=== PATIENT | male | born 1960 | race Caucasian/White ===

== ENCOUNTER → 2019-08-28 | Outpatient (REF) | payer OTHER | LOC: M SFHCPLAZ 08:42 | PROVIDERS: ATTEND Family Medicine | DX: Z00.00 Encounter for general adult medical examination without abnormal findings (principal); E29.1 Testicular hypofunction; I10 Essential (primary) hypertension; E78.5 Hyperlipidemia, unspecified; R73.03 Prediabetes ==

== ENCOUNTER → 2020-07-15 | Outpatient (REF) | payer OTHER | LOC: M SFHCPLAZ 10:18 | PROVIDERS: ATTEND Family Medicine | DX: E29.1 Testicular hypofunction (principal) ==

== ENCOUNTER 2021-05-29 14:20 | Emergency (ER) | payer OTHER ==
[~2021-05-29] VITALS: Ht 177.8 cm; Wt 125.1 kg
--- OUTSIDE RECORDS SUMMARY | 2021-05-29 14:24 | CCD ---
Author Author [facility] Organization [facility] Address Unknown Phone Unavailable Care Team Providers Care Operations Research Engineer Name Role Phone Ritesh Richardson Unavailable PROBLEMS Type Condition ICD9-CM Code [id number] Code Onset Dates Condition S tatus W/U Status Risk SNOMED Code Notes Problem Essential hypertension I10 Active confirmed 32403102 Problem Hypogonadism in male E29.1 Active confirmed 09708709 Problem Hyperlipidemia, unspecified hyperlipidemia type E7 8.5 Active confirmed [id number] ALLERGIES Allergen (clinical drug ingredient) Drug/Non Drug Allergy do cumented on EMR Reaction Allergy Type Onset Date Status Sulfa (for allergy use only) Anaphylaxis Drug Allergy Active ENCOUNTERS from 1960 to 2021-03-13 Encounter Location Date Provider Diagnosis [address] [phone] [place] [address] Feb, Ritesh Richardson IMMUNIZATIONS No Information SOCIAL HISTORY Tobacco Use: Social History Observation Description Date Details (start date - stop date) Current Smoker Sex Assigned At : Social History Observation Description Sex Assigned At Unknown Audit Question Answer Notes Total Score: 3 Interpretation: Alcohol Education Sexual Hx: Question Answer Notes Have you ever had an STD? No Drug and Alcohol Question Answer Notes Total Score: 0 Interpretation: No problems reported Alcohol Screening: Question Answer Notes Did you have a drink containing alcohol in the past year? Ye s Points 0 Interpretation Negative Tobacco Use: Question Answer Notes Are you a: current smoker Patient counseled on the dangers of tobacco use and urged to quit: 05/20/2019 How many cigarettes a day do you smoke? 5 or less Cigars Are you interested in quitting? Not ready to quit Counseled the patient on smoking effects, education provided 05/20/2019 REASON FOR REFERRAL No Information VITAL SIGNS No information MEDICATIONS Medication SIG (Take, Route, Frequency, Duration) Notes Start Da te End Date Status Lisinopril 40 MG 1 tablet Orally Once a day for 30 days Active Atenolol 50 MG 1 tablet Once a day Orally 90 days for 30 days Active Lisinopril 40 MG 1 by mouth every day 90 days for 90 Active Aspirin 325 MG 1 tablet Orally Once a day for 30 day(s) Active Triamcinolone Acetonide 0.1 % 1 application Externally Twice a day for a max of 14 days for 14 days Jul, Active Testosterone Cypionate 200 MG/ML 1 ml Intramuscular every 2 week s for 28 days Active Atenolol 50 MG 1 tablet Orally Once a day for 30 day(s) Active Furosemide 40 MG TAKE ONE TABLET BY MOUTH ONC E DAILY 30 30 orally Daily for 30 days Active Atorvastatin Calcium 80 MG 1 tablet Orally Once a day for 30 day(s) Active Pantoprazole Sodium 40 MG 1 tablet Orally Once a day for 30 Active PROCEDURES No Information RESULTS No Results REASON FOR VISIT refill MEDICAL (GENERAL) HISTORY Type Description Date Medical History Hypertension goal < 140/90 Medical History High Cholesterol Medical History h/o Testicular Cancer, s/p bilateral orc hiectomy Medical History Low Testosterone Surgical History CABG x 5, sees cardiology 2016 Surgical History Testicular cancer biopsy and removal Hospitalization History Surgery Goals Section No Information Health Concerns No Information MEDICAL EQUIPMENT No Information MENTAL STATUS No Information FUNCTIONAL STATUS No Information ASSESSMENTS No Information PLAN OF TREATMENT Medication Medication Name Sig Start Date Stop Date Lisinopril 40 MG 1 tablet Orally Once a day for 30 days Furosemide 40 MG TAKE ONE TABLET BY MOUTH ONC E DAILY 30 30 orally Daily for 30 days Testosterone Cypionate 200 MG/ML 1 ml Intramuscular every 2 week s for 28 days Pantoprazole Sodium 40 MG 1 tablet Orally Once a day for 30 Atenolol 50 MG 1 tablet Once a day Orally 90 days for 30 days Insurance Providers Payer Name Payer Address Payer Phone Insured Name Patient Relati onship to Insured Coverage Start Date Coverage End Date [facility] [address] [facility] [phone] TR[place] DUFFY self
--- OUTSIDE RECORDS SUMMARY | 2021-05-29 14:24 | CCD ---
Author Author [facility] Organization [facility] Address Unknown Phone Unavailable Care Team Providers Care Customer Order Clerk Name Role Phone BETO, L HO PA Unavailable Unavailable BETO, L HO PA Unavailable Unavailable BETO, L HO PA Unavailable Unavailable BETO, L HO PA Unavailable Unavailable BETO, L HO PA Unavailable Unavailable BETO, L HO PA Unavailable Unavailable BETO, L HO PA Unavailable Unavailable BETO, L HO PA Unavailable Unavailable BETO, L HO PA Unavailable Unavailable BETO, L HO PA Unavailable Unavailable BETO, L HO PA Unavailable Unavailable BETO, L HO PA Unavailable Unavailable BETO, L HO PA Unavailable Unavailable BETO, L HO PA Unavailable Unavailable BETO, L HO PA Unavailable Unavailable BETO, L HO PA Unavailable Unavailable DRAZEK, I JUDY PA Unavailable Unavailable DRAZEK, I JUDY PA Unavailable Unavailable DRAZEK, I JUDY PA Unavailable Unavailable DRAZEK, I JUDY PA Unavailable Unavailable DRAZEK, I JUDY PA Unavailable Unavailable DRAZEK, I JUDY PA Unavailable Unavailable DRAZEK, I JUDY PA Unavailable Unavailable DRAZEK, I JUDY PA Unavailable Unavailable DRAZEK, I JUDY PA Unavailable Unavailable DRAZEK, I JUDY PA Unavailable Unavailable DRAZEK, I JUDY PA Unavailable Unavailable DRAZEK, I JUDY PA Unavailable Unavailable DRAZEK, I JUDY PA Unavailable Unavailable DRAZEK, I JUDY PA Unavailable Unavailable DRAZEK, I JUDY PA Unavailable Unavailable DRAZEK, I JUDY PA Unavailable Unavailable DRAZEK, I JUDY PA Unavailable Unavailable DRAZEK, I JUDY PA Unavailable Unavailable DRAZEK, I JUDY PA Unavailable Unavailable DRAZEK, I JUDY PA Unavailable Unavailable DRAZEK, I JUDY PA Unavailable Unavailable DRAZEK, I JUDY PA Unavailable Unavailable DRAZEK, I JUDY PA Unavailable Unavailable DRAZEK, I JUDY PA Unavailable Unavailable DRAZEK, I JUDY PA Unavailable Unavailable DRAZEK, I JUDY PA Unavailable Unavailable DRAZEK, I JUDY PA Unavailable Unavailable DRAZEK, I JUDY PA Unavailable Unavailable DRAZEK, I JUDY PA Unavailable Unavailable DRAZEK, I JUDY PA Unavailable Unavailable Re-disclosure Warning The records that you are about to access may contain information from federally-assisted alcohol or drug abuse programs. If such information is present, then the following federally mandated warning applies: This information has been disclosed to you from records protected by federal confidentiality rules (42 CFR part 2). The federal rules prohibit you from making any further disclosure of this information unless further disclosure is expressly permitted by the written consent of the person to whom it pertains or as otherwise permitted by 42 CFR part 2. A general authorization for the release of medical or other information is NOT sufficient for this purpose. The Federal rules restrict any use of the information to criminally investigate or prosecute any alcohol or drug abuse patient.The records that you are about to access may contain highly sensitive health information, the redisclosure of which is protected by Article 27-F of the [place] Public Health law. If you continue you may have access to information: Regarding HIV / AIDS; Provided by facilities licensed or operated by the [facility] Office of Mental Health; or Provided by the [facility] Office for People With Developmental Disabilities. If such information is present, then the following [facility] mandated warning applies: This information has been disclosed to you from confidential records which are protected by state law. State law prohibits you from making any further disclosure of this information without the specific written consent of the person to whom it pertains, or as otherwise permitted by law. Any unauthorized further disclosure in violation of state law may result in a fine or mcc sentence or both. A general authorization for the release of medical or other information is NOT sufficient authorization for further disc losure. Family History Family Member Name Family Member Gender Family Member Status Date o f Status Description Data Source(s) Unknown Unknown Problem [facility] ([facility]) Encounters Encounter Providers Location Date Indications Data Source(s ) Unknown [address] [facility] [address] 05/08/2021 12:00:00 AM EDT eCW1 ([facility]) Unknown [address] [facility] [address] 03/15/2021 12:00:00 AM EDT eCW1 ([facility]) Unknown [address] [facility] [address] 03/07/2021 12:00:00 AM EDT eCW1 ([facility]) Unknown [address] [facility] [address] 01/25/2021 12:00:00 AM EDT eCW1 ([facility]) Unknown [address] [facility] [address] 12/16/2020 12:00:00 AM EDT eCW1 ([facility]) Unknown [address] [facility] [address] 12/15/2020 12:00:00 AM EDT eCW1 ([facility]) Unknown [address] [facility] [address] 10/27/2020 12:00:00 AM EDT eCW1 ([facility]) Unknown [address] [facility] [address] 10/19/2020 12:00:00 AM EDT eCW1 ([facility]) Unknown [address] [facility] [address] 10/19/2020 12:00:00 AM EDT eCW1 ([facility]) Office Visit Attender: JUDY COHEN Physical Therapy 2020 08:30:00 AM EDT MED[facility] ([facility]) Unknown [address] [facility] [address] 09/09/2020 12:00:00 AM EST eCW1 ([facility] OFFICE OUTPATIENT NEW 30 MINUTES Attender: JUDY COHEN Physic al Therapy 08/31/2020 07:45:00 AM EST [facility] ([facility]) Unknown [address] [facility] [address] 07/20/2020 12:00:00 AM EST eCW1 ([facility]) Outpatient [address] [facility] [place] [address] 07/15/2020 12:00:00 AM EST eCW1 ([facility]) Outpatient Attender: HO COHEN Main Office 07/01/2020 1 2:30:00 PM EST MED[facility] ([facility]) Unknown [address] [facility] [place] [address] 06/08/2020 12:00:00 AM EST eCW1 ([facility]) Unknown [address] [facility] [address] 05/25/2020 12:00:00 AM EDT eCW1 ([facility]) Medications Medication Brand Name Start Date Product Form Dose Route Admi nistrative Instructions Pharmacy Instructions Status Indications Reaction Description Data Source(s) Testosterone Cypionate 200 MG/ML Testosterone Cypionate 200 MG/ML 04/25/2021 12:00:00 AM EDT 1.0 {ml} active Testos terone Cypionate 200 MG/ML eCW1 ([facility]) Nitroglycerin 0.4 MG Sublingual Tablet Nitroglycerin 0 12:00:00 AM EST SUBLINGUAL active MEDEN T ([facility]) Insurance Providers Payer name Policy type / Coverage type Policy ID Covered democrat ID Covered democrat's relationship to horner Policy Horner Plan Information UHC MEDICAID [id number] Lizeth [id number] [facility] MEDICAID [id number] Lizeth [id number] [facility] Commercial [id number] Self [id number] [facility] Medigap Part B [id number] Self [id number] Medicaid Medigap Part B [id number] Self [id number] [facility] Commercial [id number] Self [id number] [facility] [id number] SP [id number] MEDICAID M [id number] S [id number] [facility] Commercial [id number] Self [id number] [facility] Commercial [id number] Self [facility] O [id number] S [id number] Medicaid [facility] Part B [id number] Self [id number] Problems, Conditions, and Diagnoses No Information Surgeries/Procedures Procedure Description Date Indications Data Source(s) RADEX SHOULDER COMPLETE MINIMUM 2 VIEWS 08/31/2020 12: 00:00 AM EST [facility] ([facility] RADEX SHOULDER COMPLETE MINIMUM 2 VIEWS 08/31/2020 12: 00:00 AM EST MED[facility] ([facility] ) RADEX SHOULDER COMPLETE MINIMUM 2 VIEWS 08/31/2020 12: 00:00 AM EST MED[facility] ([facility] ) ECG ROUTINE ECG W/LEAST 12 LDS W/I&R 07/01/2020 12:00: 00 AM EST MED[facility] ([facility]) Results ID Date Data Source CBC - Complete Blood Count 08/08/2020 12:00:00 AM EST eCW1 ( [facility]) Name Value Range Interpretation Code Description Data Payton rce(s) Supporting Document(s) WBC eCW1 ([facility]) Complete Blood Count (CBC) eCW 1 ([facility]) RBC eCW1 ([facility]) HEMATOCRIT eCW1 ([facility]) HEMOGLOBIN eCW1 ([facility]) MCV eCW1 ([facility]) RDW eCW1 ([facility]) MCHC eCW1 ([facility]) MCH eCW1 ([facility]) PLATELET COUNT eCW1 ([facility]) Procedure Social History Code Duration Value Status Description Data Source(s ) Smoking 04/25/2021 12:00:00 AM EDT Current Smoker completed Curre nt Smoker eCW1 ([facility]) Smoking 09/26/2020 12:00:00 AM EST Current Smoker completed Curre nt Smoker eCW1 ([facility]) Smoking 09/26/2020 12:00:00 AM EST Current Smoker completed Curre nt Smoker eCW1 ([facility]) Smoking 09/26/2020 12:00:00 AM EST Current Smoker completed Curre nt Smoker eCW1 ([facility]) Smoking 09/26/2020 12:00:00 AM EST Current Smoker completed Curre nt Smoker eCW1 ([facility]) Smoking 09/26/2020 12:00:00 AM EST Current Smoker completed Curre nt Smoker eCW1 ([facility]) Smoking 09/26/2020 12:00:00 AM EST Current Smoker completed Curre nt Smoker eCW1 ([facility]) Smoking 09/26/2020 12:00:00 AM EST Current Smoker completed Curre nt Smoker eCW1 ([facility]) Smoking 09/26/2020 12:00:00 AM EST Current Smoker completed Curre nt Smoker eCW1 ([facility]) Smoking 09/26/2020 12:00:00 AM EST Current Smoker completed Curre nt Smoker eCW1 ([facility]) Smoking 07/15/2020 12:00:00 AM EST Current Smoker completed Curre nt Smoker eCW1 ([facility]) Smoking 07/15/2020 12:00:00 AM EST Current Smoker completed Curre nt Smoker eCW1 ([facility]) Smoking 07/01/2020 12:00:00 AM EST Patient is a former smoker completed Patient is a former smoker MEDENT ([facility]) Vital Signs ID Date Data Source UNK Name Value Range Interpretation Code Description Data Source(s) Body mass index (BMI) [Ratio] 40.9 kg/m2 40.9 k g/m2 MEDENT ([facility]) Body temperature 97.1 [degF] 97.1 [degF] MEDENT ([facility]) Body height 69.75 [in_i] 69.75 [in_i] MEDENT ([facility]) 5'9.75" Body weight 283.38 [lb_av] 283.38 [lb_av] MEDEN T ([facility] ) Body weight 283 [lb_av] 283 [lb_av] eCW1 ([facility]) Body height 71 [in_i] 71 [in_i] eCW1 ([facility]) Body mass index (BMI) [Ratio] 39.47 kg/m2 39.47 kg/m2 eCW1 ([facility]) Heart rate 17 /min 17 /min eCW1 ([facility]) Respiratory rate 97.7 /min 97.7 /min eCW1 ([facility]) Body temperature 91 [degF] 91 [degF] eCW1 ([facility]) Systolic blood pressure 124 mm[Hg] 124 mm[Hg] e CW1 ([facility]) Diastolic blood pressure 78 mm[Hg] 78 mm[Hg] eCW1 ([facility]) Body weight 271.00 [lb_av] 271.00 [lb_av] MEDEN T ([facility]) Body height 71 [in_i] 71 [in_i] [facility] ([facility] 5'11" Body mass index (BMI) [Ratio] 37.8 kg/m2 37.8 k g/m2 MEDENT ([facility]) Patient Treatment Plan of Care Planned Activity Planned Date Details Description Data Source (s) Testosterone Cypionate 200 MG/ML 04/25/2021 12:00:00 AM EDT eCW1 ([facility])
--- OUTSIDE RECORDS SUMMARY | 2021-05-29 14:24 | CCD ---
Author Author [email or web address] Organization [email or web address] Address Unknown Phone Unavailable Care Team Providers Care Manager Audit Name Role Phone Ritesh Richardson Unavailable PROBLEMS Type Condition ICD9-CM Code [id number] Code Onset Dates Condition S tatus W/U Status Risk SNOMED Code Notes Problem Essential hypertension I10 Active confirmed 86390222 Problem Hypogonadism in male E29.1 Active confirmed 06474266 Problem Hyperlipidemia, unspecified hyperlipidemia type E7 8.5 Active confirmed 46334606 ALLERGIES Allergen (clinical drug ingredient) Drug/Non Drug Allergy do cumented on EMR Reaction Allergy Type Onset Date Status Sulfa (for allergy use only) Anaphylaxis Drug Allergy Active ENCOUNTERS from 1960 to 2021-04-05 Encounter Location Date Provider Diagnosis [address] [phone] [place] [address] Feb, Ritesh Richardson IMMUNIZATIONS No Information SOCIAL [...] Notes Start Da te End Date Status Atorvastatin Calcium 80 MG 1 tablet Orally Once a day for 30 day(s) Active Atenolol 50 MG 1 tablet Once a day Orally 90 days for 30 days Active Lisinopril 40 MG 1 by mouth every day 90 days for 90 Active Lisinopril 40 MG 1 tablet Orally Once a day for 30 days Active Aspirin 325 MG 1 tablet Orally Once a day for 30 day(s) Active Testosterone Cypionate 200 MG/ML 1 ml Intramuscular every 2 week s for 28 days Active Atenolol 50 MG 1 tablet Orally Once a day for 30 day(s) Active Pantoprazole Sodium 40 MG 1 tablet Orally Once a day for 30 days Active Triamcinolone Acetonide 0.1 % 1 application Externally Twice a day for a max of 14 days for 14 days Jul, Active Furosemide 40 MG TAKE ONE TABLET BY MOUTH ONC E DAILY 30 30 orally Daily for 30 days Active PROCEDURES No Information RESULTS No Results REASON FOR VISIT testosterone MEDICAL (GENERAL) HISTORY Type Description Date Medical [...] Medication Name Sig Start Date Stop Date Atenolol 50 MG 1 tablet Orally Once a day for 30 day(s) Pantoprazole Sodium 40 MG 1 tablet Orally Once a day for 30 days Furosemide 40 MG TAKE ONE TABLET BY MOUTH ONC E DAILY 30 30 orally Daily for 30 days Lisinopril 40 MG 1 tablet Orally Once a day for 30 days Atenolol 50 MG 1 tablet Once a day Orally 90 days for 30 days Testosterone Cypionate 200 MG/ML 1 ml Intramuscular every 2 week s for 28 days Next Appt Details Provider Name:Tom Reni, 2021-04-25 03: 45:00 PM, [address] , , [place], [address], Insurance Providers Payer Name Payer Address Payer Phone Insured Name Patient Relati onship to Insured Coverage Start Date Coverage End Date [facility] [id number] [facility] [phone] TRISH DUFF[place] self
--- OUTSIDE RECORDS SUMMARY | 2021-05-29 14:24 | CCD ---
Author Author [facility] Organization [facility] Address Unknown Phone Unavailable Care Team Providers Care Sociology Instructor Name Role Phone Tom Noguera Unavailable PROBLEMS Type Condition ICD9-CM Code [id number] Code Onset Dates Condition S tatus W/U Status Risk SNOMED Code Notes Problem Essential hypertension I10 Active confirmed 59427136 Problem Hypogonadism in male E29.1 Active confirmed 43315792 Problem Hyperlipidemia, unspecified hyperlipidemia type E7 8.5 Active confirmed 25944892 ALLERGIES Allergen (clinical drug ingredient) Drug/Non Drug Allergy do cumented on EMR Reaction Allergy Type Onset Date Status Sulfa (for allergy use only) Anaphylaxis Drug Allergy Active ENCOUNTERS from 1960 to 2021-05-08 Encounter Location Date Provider Diagnosis [address] [phone] [place] [address] Apr, Tom Noguera IMMUNIZATIONS No Information SOCIAL HISTORY Tobacco Use: [...] Notes Start Da te End Date Status Pantoprazole Sodium 40 MG TAKE ONE TABLET BY MOUTH ONCE DAILY for 30 Active Atenolol 50 MG 1 tablet Orally Once a day for 30 day(s) Active Aspirin 325 MG 1 tablet Orally Once a day for 30 day(s) Active Triamcinolone Acetonide 0.1 % 1 application Externally Twice a day for a max of 14 days for 14 days Jul, Active Furosemide 40 MG TAKE ONE TABLET BY MOUTH ONCE DAILY for 30 Active Atorvastatin Calcium 80 MG 1 tablet Orally Once a day for 30 day(s) Active Lisinopril 40 MG TAKE ONE TABLET BY MOUTH ONCE DAILY for 30 Active Testosterone Cypionate 200 MG/ML 1 ml Intramuscular every 2 week s for 28 days Mar, Active Atenolol 50 MG 1 tablet Once a day Orally 90 days for 30 days Not-Taking PROCEDURES No Information RESULTS No Results REASON FOR VISIT meds not sent - out of meds MEDICAL (GENERAL) HISTORY Type Description Date Medical [...] Medication Name Sig Start Date Stop Date Pantoprazole Sodium 40 MG TAKE ONE TABLET BY MOUTH ONCE DAILY fo r 30 Lisinopril 40 MG TAKE ONE TABLET BY MOUTH ONCE DAILY for 30 Furosemide 40 MG TAKE ONE TABLET BY MOUTH ONCE DAILY for 30 Testosterone Cypionate 200 MG/ML 1 ml Intramuscular every 2 weeks for 28 days Mar, Insurance Providers Payer Name Payer Address Payer Phone Insured Name Patient Relati onship to Insured Coverage Start Date Coverage End Date [facility] [address] [facility] [phone] TRISH DUFFY self
[2021-05-29] MEDS ORDERED: BAYE325T13 PO (14:30)
[2021-05-29] MEDS ORDERED: ATEN50TA2 (14:30)
[2021-05-29] MEDS ORDERED: FURO40TA2 (14:30)
[2021-05-29] MEDS ORDERED: LISI40TA4 (14:30)
[2021-05-29] MEDS ORDERED: ATOR80TA59 (14:30)
[2021-05-29] MEDS ORDERED: PANT40TA29 (14:30)
[2021-05-29] MEDS ORDERED: TEST200I14 (14:30)
--- NOTE | 2021-05-29 21:41 | REPVR ---
PROCEDURE INFORMATION: Exam: XR Chest Exam date and time: 05/29/2021 8:32 PM Age: 60 years old Clinical indication: Screening exam; Other screening; Additional info: Covid 19 TECHNIQUE: Imaging protocol: XR of the chest. Views: 1 view. COMPARISON: No relevant prior studies available. FINDINGS: Lungs: No focal infiltrates. Pleural spaces: Unremarkable. No pleural effusion. No pneumothorax. Heart/Mediastinum: Unremarkable. No cardiomegaly. Bones/joints: Status post sternotomy. Other findings: Lordotic projection. IMPRESSION: 1. Status post sternotomy. 2. Otherwise negative lordotic chest. No focal infiltrates. Electronically signed by: Ananda Ferrera On 05/29/2021 21:40:57 PM
[2021-05-29 22:43] VITALS: BP 170/88
== END 2021-05-29 22:46 | disposition home or self-care (01) ==
LOC: M ED 14:20
DX: R43.8 Other disturbances of smell and taste (principal); U07.1 COVID-19; I25.10 Atherosclerotic heart disease of native coronary artery without angina pectoris; Z88.2 Allergy status to sulfonamides; F17.210 Nicotine dependence, cigarettes, uncomplicated
CPT/HCPCS: 71045; 99283; U0002

== ENCOUNTER 2021-05-31 11:42 | Outpatient (CLI) | payer OTHER ==
--- NOTE | 2021-05-29 22:50 | IPNPDOC ---
Text Note Date of Service The patient was seen on 05/29/21. NOTE Outpatient transfusion for COVID+ patient encounter Patient is COVID19+ will be receiving Monocolonal antibodies infusion therapy p er hospital infusion policy. Patient has been feeling loss of sense of taste and smell for 1 day which prompted him to do home Covid test which was positive and confirmed in the ER. He presented to the ER requesting monoclonal antibodies which his sister recently received with good results. Patient does not meet criteria to be admitted to the hospital. Patient is breathing at 98% on room air and does not dipped below 92% on ambulation. Patient will receive the infusion and then be discharged to home with OP followup. On exam patient was resting comfortably lungs were clear to auscultation bilaterally with no crackles or wheezing. Regular heart rate. Patient was calm awake and answering all questions appropriately. Is able to speak in full sentences without appearing short of breath. Consent was obtained with patient and signed in the chart. Patient advised to return to hospital should his symptoms worsen. JOANNE LONDON MD May 29, 2021 22:50
[~2021-05-31] VITALS: Ht 177.8 cm; Wt 120.0 kg
[~2021-05-31 11:42] MED LIST: ACETAMINOPHEN TAB 650MG DOSE (2X325MG) PO ONE; ACETAMINOPHEN TAB 650MG DOSE (2X325MG) PO PRN; ALBUTEROL 90 MCG/ACT 8GM HFA INHALER INH PRN; ALBUTEROL SULFATE 2.5 MG/0.5 ML INH NEB SOLN INH PRN; ATEN50TA2; ATOR80TA59; BAMLANIVIMAB 700 MG, ETESEVIMAB 1,400 MG in NS 250 ML IV ONE; BAYE325T13 PO; CASIRIVIMAB/IMDEVIMAB 1,200 MG in NS 250 ML IV ONE; EPINEPHrine INJ 1 MG/ML 1ML AMP IM PRN; FURO40TA2; LISI40TA4; NS 1,000 ML IV SCH; PANT40TA29; TEST200I14; diphenhydrAMINE 25MG CAP PO ONE; diphenhydrAMINE 50MG/ML VIAL (J1200) IV PRN; methylPREDNISolone 125MG 2ML VIAL IV PRN
[2021-05-31 12:55] VITALS: BP 164/77
[2021-05-31 13:25] VITALS: BP 166/85
[2021-05-31 13:55] VITALS: BP 174/86
[2021-05-31 14:55] VITALS: BP 210/102
== END 2021-05-31 15:10 | disposition home or self-care (01) ==
LOC: M OPCLI4 11:42
PROVIDERS: ATTEND Family Medicine
DX: U07.1 COVID-19 (principal); Z88.2 Allergy status to sulfonamides

== ENCOUNTER 2021-05-31 15:19 | Emergency (ER) | payer OTHER ==
[~2021-05-31] VITALS: Ht 177.8 cm; Wt 122.7 kg
[~2021-05-31 15:19] MED LIST changes: -ACETAMINOPHEN TAB 650MG DOSE (2X325MG) PO ONE; -ACETAMINOPHEN TAB 650MG DOSE (2X325MG) PO PRN; -ALBUTEROL 90 MCG/ACT 8GM HFA INHALER INH PRN; -ALBUTEROL SULFATE 2.5 MG/0.5 ML INH NEB SOLN INH PRN; -BAMLANIVIMAB 700 MG, ETESEVIMAB 1,400 MG in NS 250 ML IV ONE; -CASIRIVIMAB/IMDEVIMAB 1,200 MG in NS 250 ML IV ONE; -EPINEPHrine INJ 1 MG/ML 1ML AMP IM PRN; -NS 1,000 ML IV SCH; -diphenhydrAMINE 25MG CAP PO ONE; -diphenhydrAMINE 50MG/ML VIAL (J1200) IV PRN; -methylPREDNISolone 125MG 2ML VIAL IV PRN
[2021-05-31 16:20] VITALS: BP 210/94
[2021-05-31] MEDS ORDERED: lisinopriL 40 MG TAB PO ONE (16:20)
[2021-05-31] MEDS ORDERED: ACETAMINOPHEN 325 MG TAB PO ONE (16:20)
[2021-05-31] MEDS ORDERED: atenoloL 50 MG TAB PO ONE (16:20)
[2021-05-31] MEDS ORDERED: FUROSEMIDE 40 MG TAB PO ONE (16:20)
[2021-05-31 17:19] VITALS: BP 184/97
--- NOTE | 2021-06-01 09:45 | ECGEPIP ---
[facility] - ED Test Date: 2021-05-31 Pat Name: TRISH DUFFY Department: Room: - Gender: Male Psych Np: LARISSA : 1960 Requested By: Jeb Cain Order Number: [id number] Reading MD: Liliane Gudino Measurements Intervals [facility] Rate: 101 P: 69 UT: 156 QRS: 40 QRSD: 104 T: 61 QT: 340 QTc: 440 Interpretive Statements Sinus tachycardia Inferior infarct , age undetermined NSTTW abnormalities baseline artifact may affect interpretation No prior Electronically Signed on 06-01-2021 9:45:27 EDT by Liliane Gudino
== END 2021-05-31 17:55 | disposition home or self-care (01) ==
LOC: M ED 15:19
DX: U07.1 COVID-19 (principal); I10 Essential (primary) hypertension; R00.0 Tachycardia, unspecified; E78.5 Hyperlipidemia, unspecified; K21.9 Gastro-esophageal reflux disease without esophagitis; Z79.82 Long term (current) use of aspirin; Z79.890 Hormone replacement therapy; Z79.899 Other long term (current) drug therapy; Z88.2 Allergy status to sulfonamides

== ENCOUNTER → 2021-09-07 | Outpatient (CLI) | payer OTHER ==
[2021-09-07 14:08] LABS: BASO # 0.1 10^3/uL (0.0-0.2); EOS # 0.3 10^3/uL (0.0-0.5); EOS % 2.6 % (0.0-3.0); HEMATOCRIT 50.2 % (42.0-52.0); HEMOGLOBIN 16.7 g/dl (13.5-17.5); LYMPH # 3.5 10^3/uL (1.5-5.0); LYMPH % 32.9 % (24.0-44.0); MEAN CORPUSCULAR HEMOGLOBIN 30.9 pg (27.0-33.0); MEAN CORPUSCULAR HGB CONC 33.3 g/dl (32.0-36.5); MEAN CORPUSCULAR VOLUME 92.8 fl (80.0-96.0); MONO % 9.6 % (2.0-8.0); NEUTROPHILS # 5.7 10^3/uL (1.5-8.5); NEUTROPHILS % 53.5 % (36.0-66.0); PLATELET COUNT, AUTOMATED 260 10^3/uL (150-450); RED BLOOD COUNT 5.41 10^6/uL (4.30-6.10); WHITE BLOOD COUNT 10.7 10^3/uL (4.0-10.0)
[2021-09-07 14:36] LABS: ALBUMIN 3.7 GM/DL (3.2-5.2); ALT/SGPT 46 U/L (12-78); BILIRUBIN,TOTAL 0.4 MG/DL (0.2-1.0); BLOOD UREA NITROGEN 15 MG/DL (7-18); CALCIUM LEVEL 9.7 MG/DL (8.8-10.2); CARBON DIOXIDE LEVEL 26 MEQ/L (21-32); CHLORIDE LEVEL 103 MEQ/L (98-107); CREATININE FOR GFR 1.24 MG/DL (0.70-1.30); GLOMERULAR FILTRATION RATE > 60.0 (>49); GLUCOSE, FASTING 87 MG/DL (70-100); NT-PRO BNP 168 PG/ML (<125); POTASSIUM SERUM 3.9 MEQ/L (3.5-5.1); SODIUM LEVEL 136 MEQ/L (136-145); TOTAL PROTEIN 7.8 GM/DL (6.4-8.2)
[2021-09-07 22:46] LABS: MAGNESIUM LEVEL 1.7 MG/DL (1.7-2.2)
== END ==
LOC: M CARPUL 13:10
PROVIDERS: ATTEND Physician Assistant
DX: R06.02 Shortness of breath (principal)

== ENCOUNTER → 2021-11-13 | Outpatient (CLI) | payer OTHER | LOC: M PLALAB 13:51 | PROVIDERS: ATTEND Student in an Organized Health Care Education/Training Program | DX: M54.16 Radiculopathy, lumbar region (principal) ==

== ENCOUNTER → 2021-11-22 | Outpatient (CLI) | payer OTHER ==
[2021-11-22 11:21] LABS: ALBUMIN 3.9 GM/DL (3.2-5.2); ALT/SGPT 42 U/L (12-78); BILIRUBIN,TOTAL 0.8 MG/DL (0.2-1.0); BLOOD UREA NITROGEN 16 MG/DL (7-18); CALCIUM LEVEL 9.6 MG/DL (8.8-10.2); CARBON DIOXIDE LEVEL 26 MEQ/L (21-32); CHLORIDE LEVEL 106 MEQ/L (98-107); CREATININE FOR GFR 1.14 MG/DL (0.70-1.30); GLOMERULAR FILTRATION RATE > 60.0 (>49); GLUCOSE, FASTING 130 MG/DL (70-100); POTASSIUM SERUM 4.2 MEQ/L (3.5-5.1); SODIUM LEVEL 138 MEQ/L (136-145); TOTAL PROTEIN 7.1 GM/DL (6.4-8.2)
[2021-11-23 10:10] LABS: THYROID STIMULATING HORMONE 0.804 uIU/ML (0.358-3.740)
== END ==
LOC: M PLALAB 08:13
PROVIDERS: ATTEND Student in an Organized Health Care Education/Training Program
DX: M47.896 Other spondylosis, lumbar region (principal)

== ENCOUNTER → 2021-11-23 | Outpatient (REF) | payer OTHER | LOC: M SFHCPLAZ 08:54 | PROVIDERS: ATTEND Family Medicine | DX: M47.896 Other spondylosis, lumbar region (principal) ==

== ENCOUNTER → 2022-08-01 | Outpatient (CLI) | payer OTHER | LOC: M RAD 12:44 | PROVIDERS: ATTEND Physician Assistant | DX: R91.8 Other nonspecific abnormal finding of lung field (principal) ==

== ENCOUNTER → 2022-10-29 | Outpatient (CLI) | payer OTHER | LOC: M RAD 06:50 | PROVIDERS: ATTEND Physician Assistant | DX: R91.8 Other nonspecific abnormal finding of lung field (principal) ==

== ENCOUNTER → 2023-05-07 | Outpatient (CLI) | payer OTHER ==
[2023-05-07 08:04] LABS: BASO # 0.1 10^3/uL (0.0-0.2); EOS # 0.3 10^3/uL (0.0-0.5); EOS % 2.8 % (0.0-3.0); HEMATOCRIT 52.3 % (42.0-52.0); HEMOGLOBIN 16.9 g/dl (13.5-17.5); LYMPH # 2.8 10^3/uL (1.5-5.0); MEAN CORPUSCULAR HEMOGLOBIN 28.8 pg (27.0-33.0); MEAN CORPUSCULAR HGB CONC 32.3 g/dl (32.0-36.5); MEAN CORPUSCULAR VOLUME 89.1 fl (80.0-96.0); MONO # 0.8 10^3/uL (0.0-0.8); MONO % 7.3 % (2.0-8.0); NEUTROPHILS # 6.4 10^3/uL (1.5-8.5); NEUTROPHILS % 61.5 % (36.0-66.0); PLATELET COUNT, AUTOMATED 308 10^3/uL (150-450); RED BLOOD COUNT 5.87 10^6/uL (4.30-6.10); WHITE BLOOD COUNT 10.4 10^3/uL (4.0-10.0)
[2023-05-07 08:24] LABS: ALBUMIN 3.5 G/DL (3.2-5.2); ALKALINE PHOSPHATASE 82 U/L (46-116); ALT/SGPT 39 U/L (7.0-40); AST/SGOT 27 U/L (<34); BILIRUBIN,TOTAL 0.6 MG/DL (0.3-1.2); BLOOD UREA NITROGEN 17 MG/DL (9-23); CALCIUM LEVEL 9.3 MG/DL (8.3-10.6); CARBON DIOXIDE LEVEL 31 MMOL/L (20-31); CHLORIDE LEVEL 108 MMOL/L (98-107); CHOLESTEROL LEVEL 116 MG/DL (<200); CHOLESTEROL RISK RATIO 3.64 (<5); GLOMERULAR FILTRATION RATE > 60.0 (>49); GLUCOSE, FASTING 123 MG/DL (74-106); HDL CHOLESTEROL 31.8 MG/DL (>40); NON-HDL-C 84.2 MG/DL; POTASSIUM SERUM 4.4 MMOL/L (3.5-5.1); SODIUM LEVEL 143 MMOL/L (136-145); TOTAL PROTEIN 6.5 G/DL (5.7-8.2); TRIGLYCERIDES LEVEL 106 MG/DL (<150)
[2023-05-07 08:26] LABS: THYROID STIMULATING HORMONE 0.963 uIU/ML (0.55-4.78)
[2023-05-07 08:27] LABS: FREE T4 0.96 NG/DL (0.89-1.76)
[2023-05-07 08:31] LABS: HEMOGLOBIN A1c 6.1 % (4.0-6.0)
[2023-05-09 00:11] LABS: TESTOSTERONE FREE (DIRECT) 4.7 pg/mL (6.6-18.1)
== END ==
LOC: M LAB 07:27
PROVIDERS: ATTEND Student in an Organized Health Care Education/Training Program
DX: E78.5 Hyperlipidemia, unspecified (principal); Z79.890 Hormone replacement therapy; E29.1 Testicular hypofunction; Z13.1 Encounter for screening for diabetes mellitus; I10 Essential (primary) hypertension

== ENCOUNTER → 2023-09-10 | Outpatient (CLI) | payer OTHER | LOC: M RAD 17:42 | PROVIDERS: ATTEND Physician Assistant | DX: R91.8 Other nonspecific abnormal finding of lung field (principal) ==

== ENCOUNTER → 2023-09-24 | Outpatient (CLI) | payer OTHER ==
[2023-09-24 10:52] LABS: HEMATOCRIT 53.4 % (42.0-52.0); HEMOGLOBIN 17.7 g/dl (13.5-17.5); MEAN CORPUSCULAR HEMOGLOBIN 29.5 pg (27.0-33.0); MEAN CORPUSCULAR HGB CONC 33.1 g/dl (32.0-36.5); PLATELET COUNT, AUTOMATED 319 10^3/uL (150-450); WHITE BLOOD COUNT 12.1 10^3/uL (4.0-10.0)
[2023-09-24 11:14] LABS: ALBUMIN 3.9 G/DL (3.2-5.2); ALKALINE PHOSPHATASE 92 U/L (46-116); ALT/SGPT 46 U/L (7.0-40); AST/SGOT 28 U/L (<34); BILIRUBIN,TOTAL 0.5 MG/DL (0.3-1.2); BLOOD UREA NITROGEN 17 MG/DL (9-23); CALCIUM LEVEL 9.1 MG/DL (8.3-10.6); CARBON DIOXIDE LEVEL 29 MMOL/L (20-31); CHLORIDE LEVEL 107 MMOL/L (98-107); CHOLESTEROL LEVEL 131 MG/DL (<200); CHOLESTEROL RISK RATIO 4.23 (<5); CREATININE FOR GFR 1.07 MG/DL (0.70-1.30); GLOMERULAR FILTRATION RATE > 60.0 (>49); GLUCOSE, FASTING 96 MG/DL (74-106); HDL CHOLESTEROL 30.9 MG/DL (>40); LDL CHOLESTEROL 65.5 MG/DL (<100); MAGNESIUM LEVEL 1.4 MG/DL (1.8-2.4); NON-HDL-C 100.1 MG/DL; POTASSIUM SERUM 4.1 MMOL/L (3.5-5.1); SODIUM LEVEL 140 MMOL/L (136-145); TOTAL PROTEIN 6.9 G/DL (5.7-8.2); TRIGLYCERIDES LEVEL 173 MG/DL (<150)
== END ==
LOC: M EKG 09:52
PROVIDERS: ATTEND Registered Nurse
DX: I25.10 Atherosclerotic heart disease of native coronary artery without angina pectoris (principal)

== ENCOUNTER → 2024-01-20 | Outpatient (CLI) | payer OTHER ==
[2024-01-20 08:20] LABS: HEMATOCRIT 49.6 % (42.0-52.0); HEMOGLOBIN 16.3 g/dl (13.5-17.5); MEAN CORPUSCULAR HEMOGLOBIN 29.7 pg (27.0-33.0); MEAN CORPUSCULAR HGB CONC 32.9 g/dl (32.0-36.5); MEAN CORPUSCULAR VOLUME 90.3 fl (80.0-96.0); PLATELET COUNT, AUTOMATED 313 10^3/uL (150-450); RED BLOOD COUNT 5.49 10^6/uL (4.30-6.10); WHITE BLOOD COUNT 10.6 10^3/uL (4.0-10.0)
[2024-01-21 12:23] LABS: HCG SERUM TUMOR MARKER QUANT < 5 mIU/mL (<5)
== END ==
LOC: M LAB 07:41
PROVIDERS: ATTEND Physician Assistant
DX: E29.1 Testicular hypofunction (principal)

== ENCOUNTER → 2024-07-20 | Outpatient (CLI) | payer OTHER ==
[2024-07-20 08:09] LABS: HEMATOCRIT 51.5 % (42.0-52.0); HEMOGLOBIN 16.4 g/dl (13.5-17.5); MEAN CORPUSCULAR HEMOGLOBIN 27.5 pg (27.0-33.0); MEAN CORPUSCULAR HGB CONC 31.8 g/dl (32.0-36.5); MEAN CORPUSCULAR VOLUME 86.3 fl (80.0-96.0); PLATELET COUNT, AUTOMATED 288 10^3/uL (150-450); RED BLOOD COUNT 5.97 10^6/uL (4.30-6.10); WHITE BLOOD COUNT 10.1 10^3/uL (4.0-10.0)
[2024-07-20 08:40] LABS: ALBUMIN 3.4 G/DL (3.2-5.2); ALKALINE PHOSPHATASE 92 U/L (40-129); ALT/SGPT 27 U/L (7.0-40); AST/SGOT 22 U/L (<34); BILIRUBIN,DIRECT 0.3 MG/DL (<0.4); BILIRUBIN,TOTAL 0.7 MG/DL (0.3-1.2); BLOOD UREA NITROGEN 14 MG/DL (9-23); CALCIUM LEVEL 9.4 MG/DL (8.3-10.6); CARBON DIOXIDE LEVEL 31 MMOL/L (20-31); CHLORIDE LEVEL 103 MMOL/L (98-107); CHOLESTEROL LEVEL 117 MG/DL (<200); CHOLESTEROL RISK RATIO 3.96 (<5); CREATININE FOR GFR 1.12 MG/DL (0.70-1.30); GLOMERULAR FILTRATION RATE > 60.0 (>49); GLUCOSE, FASTING 107 MG/DL (74-106); HDL CHOLESTEROL 29.5 MG/DL (>40); LDL CHOLESTEROL 62.7 MG/DL (<100); MAGNESIUM LEVEL 1.8 MG/DL (1.8-2.4); NON-HDL-C 87.5 MG/DL; POTASSIUM SERUM 4.5 MMOL/L (3.5-5.1); SODIUM LEVEL 141 MMOL/L (136-145); TRIGLYCERIDES LEVEL 124 MG/DL (<150)
== END ==
LOC: M LAB 07:33
PROVIDERS: ATTEND Registered Nurse
DX: R71.8 Other abnormality of red blood cells (principal); R94.5 Abnormal results of liver function studies; E78.00 Pure hypercholesterolemia, unspecified; E83.42 Hypomagnesemia

== ENCOUNTER → 2024-07-27 | Outpatient (CLI) | payer OTHER ==
[2024-07-27 09:22] LABS: HEMATOCRIT 50.9 % (42.0-52.0); HEMOGLOBIN 16.3 g/dl (13.5-17.5); MEAN CORPUSCULAR HEMOGLOBIN 27.6 pg (27.0-33.0); MEAN CORPUSCULAR VOLUME 86.1 fl (80.0-96.0); PLATELET COUNT, AUTOMATED 280 10^3/uL (150-450); RED BLOOD COUNT 5.91 10^6/uL (4.30-6.10); WHITE BLOOD COUNT 9.3 10^3/uL (4.0-10.0)
[2024-07-27 09:45] LABS: PSA SCREENING 0.77 NG/ML (< 4.00)
== END ==
LOC: M LAB 07:44
PROVIDERS: ATTEND Physician Assistant
DX: E29.1 Testicular hypofunction (principal)

== ENCOUNTER → 2024-10-06 | Outpatient (CLI) | payer OTHER | LOC: M PLAIMG 08:08 | PROVIDERS: ATTEND Internal Medicine Pulmonary Disease | DX: R91.8 Other nonspecific abnormal finding of lung field (principal) ==

== ENCOUNTER → 2024-10-21 | Outpatient (CLI) | payer OTHER | LOC: M CARPUL 15:53 | PROVIDERS: ATTEND Physician Assistant | DX: I11.0 Hypertensive heart disease with heart failure (principal); I50.9 Heart failure, unspecified ==

== ENCOUNTER → 2025-03-31 | Outpatient (CLI) | payer OTHER ==
[~2025-03-31] MED LIST changes: +LISI40TA10; -LISI40TA4
== END ==
LOC: M RAD 09:06
PROVIDERS: ATTEND Student in an Organized Health Care Education/Training Program
DX: R10.13 Epigastric pain (principal)